=== PATIENT | male | born 1990 | race African-American/Black ===

== ENCOUNTER 2018-05-22 08:44 | Emergency (ER) | payer OTHER ==
[~2018-05-22] VITALS: Ht 193 cm; Wt 104.3 kg
[2018-05-22] MEDS ORDERED: IBUPROFEN 600 MG TABLET. PO ONE (09:15)
--- NOTE | 2018-05-22 09:21 | PHYS DOC ---
Past Medical History Past Medical History: Asthma Past Surgical History: No Surgical History Alcohol Use: None Drug Use: Marijuana Adult General Chief Complaint Chief Complaint: GROIN PAIN [facility] HPI 28-year-old male presents to ER for complaints of 2-3 day history of right testicular and groin pain. Patient denies any recent injury or falls. Pt denies urinary sxs, fever/chills, n/v, discharge, or concerns for STD. Pt denies rash/ lesions. He reports he does have increased pain w/walking denies swelling in extremities. Pt reports he did have sex 3-4 days ago denying pain w/intercourse or ejaculation. Review of Systems Review of Systems Constitutional: Denies fever or chills. Denies fatigue Respiratory: Denies cough or shortness of breath [] Cardiovascular: No additional information not addressed in HPI [] GI: Denies abdominal pain, nausea, vomiting, or diarrhea [] : Denies dysuria or hematuria. Denies penile discharge. Reports right testicular pain into right groin Musculoskeletal: Denies back pain Integument: Denies rash, swelling or skin lesions [] Neurologic: Denies headache, focal weakness or sensory changes [] All other systems were reviewed and found to be within normal limits, except as documented in this note. Current Medications Current Medications Current Medications Medications (Trade) Dose Ordered Sig/[facility] Start Time Stop Time Status Last Admin Dose Admin Ibuprofen (Motrin) 600 mg 1X ONCE 05/22/18 09:15 05/22/18 09:16 DC 05/22/18 09:21 600 MG Allergies Allergies Allergies Coded Allergies Type Severity Reaction Last Updated Verified No Known Drug Allergies 05/22/18 No Physical Exam Physical Exam Constitutional: Well developed, well nourished, no acute distress, non-toxic appearance. [] HENT: Normocephalic, atraumatic, oropharynx moist, nose normal. [] Eyes: Pupils equal, conjunctiva normal, no discharge. [] Neck: Normal range of motion, no tenderness, supple Cardiovascular:Heart rate regular rhythm, no murmur [] Lungs & Thorax: Bilateral breath sounds clear to auscultation. Serrations equal and nonlabored Abdomen: Bowel sounds normal, soft/no distention or rigidity, no tenderness, no masses, no pulsatile masses. [] Skin: Warm, dry, no erythema, no rash. [] Back: No tenderness, mild right-sided CVA tenderness area no left-sided CVA tenderness Extremities: No tenderness, no cyanosis, no clubbing, ROM intact, no edema. Dorsal pedis/pedal bilat. 2+. Patient had steady gait at bedside/unassisted Neurologic: Alert and oriented X 3, normal motor function, normal sensory function, no focal deficits noted. [] Psychologic: Affect normal, judgement normal, mood normal. [] RN at bedside during initial exam when exam was complete No lesions/rash- no penile discharge/pain. No scrotal/testicular swelling- tender on palp. rt testicle. Tender in rt groin with palp. lymph nodes- no crepitus. Femoral pulse 2+ equal bilat. Current Patient Data Vital Signs Vital Signs Date Time Temp Pulse Resp B/P (MAP) Pulse Ox O2 Delivery O2 Flow Rate FiO2 05/22/18 11:18 62 16 136/71 (92) 100 Room Air 05/22/18 09:05 98.2 98.2 Lab Values Laboratory Tests Test 05/22/18 09:29 Urine Collection Type Unknown Urine Color Yellow Urine Clarity Clear Urine pH 5.5 Urine Specific [place] >=1.030 Urine Protein Negative mg/dL (NEG-TRACE) Urine Glucose (UA) Negative mg/dL (NEG) Urine Ketones (Stick) Negative mg/dL (NEG) Urine Blood Negative (NEG) Urine Nitrite Negative (NEG) Urine Bilirubin Negative (NEG) Urine Urobilinogen Dipstick 0.2 mg/dL (0.2 mg/dL) Urine Leukocyte Esterase Small (NEG) Urine RBC 0 /HPF (0-2) Urine WBC >40 /HPF (0-4) Urine Squamous Epithelial Cells Occ /LPF Urine Bacteria 0 /HPF (0-FEW) Urine Mucus Mod /LPF EKG EKG [] Radiology/Procedures Radiology/Procedures PROCEDURE: TESTICULAR/SCROTUM CLINICAL HISTORY: RT TESTICULAR/GROIN PAIN
COMPARISON: None available. TECHNIQUE: Ultrasound images of the scrotum was performed with salazar-scale and color doppler. FINDINGS: The right testis measures 4 x 2.5 x 3.6 cm. The left testis measures 3.8 x 2.6 x 3.4 cm. There is no intratesticular abnormality. Testicular vascularity is symmetric and within normal limits. The epididymis is normal in appearance bilaterally. Small volume scrotal fluid is likely physiologic. There is no hydrocele or varicocele. IMPRESSION: 1. There is no evidence for testicular torsion. Electronically signed by: Yonis Lindsey MD (05/22/2018 10:55 AM) [facility] DICTATED and SIGNED BY: YONIS LINDSEY MD DATE: 05/22/18 1053 Course & Med Decision Making Course & Med Decision Making Pertinent Labs and Imaging studies reviewed. (See chart for details) 1105: Discussed test results with patient with ultrasound with no obvious acute findings. UA was negative for blood/nitrates sm. leuks- with micro showing >40 WBCs and occasional squamous/moderate mucus- no bacteria. Discussed plans for Rx for Bactrim and pt advised on pending GC/Chlam. Patient reports the ibuprofen has improved his symptoms. Patient this time is nontoxic in appearance and does continue to have some facial grimacing with repositioning. Patient reports he was able to urinate while in the ER without symptoms. Discussed plans for patient to follow up with primary care physician in next 2- 3 days for reevaluation if symptoms persist or with concerns. Will provide patient was small quantity of Bowers tablets for pain and he was advised on use of [id number] ibuprofen when necessary as directed on container. Education provided on signs and symptoms to return to ER for an discharge instructions were discussed. Dragon Disclaimer Dragon Disclaimer This electronic medical record was generated, in whole or in part, using a voice recognition dictation system. Departure Departure Impression: Primary Impression: Urinary tract infection Disposition: 01 HOME, SELF-CARE Condition: STABLE Referrals: NO PCP (PCP) Patient Instructions: Urinary Tract Infection Additional Instructions: As discussed tylenol and/or ibuprofen for pain control as directed on container. Drink plenty of water. Follow-up with primary doctor in next 2-3 days sooner with any concerns. Warm compress to right groin every 3-4 hours for 20-30 minutes at a time. Wear supportive underwear. Scripts Hydrocodone/Apap 5-325 (NORCO 5-325 TABLET) 1 Each Tablet 1 TAB PO PRN Q6HRS PRN for PAIN, #8 TAB 0 Refills Prov: MARIBEL UMANZOR RADIO/TV TECHNICIAN 05/22/18 Sulfamethoxazole/Trimethoprim (BACTRIM DS TABLET) 1 Each Tablet 1 TAB PO BID, #14 TAB 0 Refills Finish all medication Prov: MARIBEL UMANZOR APRN 05/22/18 MARIBEL UMANZOR APRN May 22, 2018 09:21
[2018-05-22 09:39] LABS: BILIRUBIN,URINE NEGATIVE (NEG); CLARITY,URINE CLEAR; COLOR,URINE YELLOW; NITRITE,URINE NEGATIVE (NEG); PH,URINE 5.5; PROTEIN,URINE NEGATIVE (NEG-TRACE); UROBILINOGEN,URINE 0.2 mg/dL (0.2 mg/dL)
[2018-05-22 09:50] LABS: RBC,URINE 0 /HPF (0-2); SQUAMOUS EPITHELIAL CELL,UR OCC /LPF; WBC,URINE >40 /HPF (0-4)
[2018-05-22 09:51] LABS: BACTERIA,URINE 0 /HPF (0-FEW)
--- NOTE | 2018-05-22 10:58 | RAD ---
CLINICAL HISTORY: RT TESTICULAR/GROIN PAIN
COMPARISON: None available. TECHNIQUE: Ultrasound images of the scrotum was performed with salazar-scale and color doppler. FINDINGS: The right testis measures 4 x 2.5 x 3.6 cm. The left testis measures 3.8 x 2.6 x 3.4 cm. There is no intratesticular abnormality. Testicular vascularity is symmetric and within normal limits. The epididymis is normal in appearance bilaterally. Small volume scrotal fluid is likely physiologic. There is no hydrocele or varicocele. IMPRESSION: 1. There is no evidence for testicular torsion. Electronically signed by: Yonis Lindsey MD (05/22/2018 10:55 AM) [facility]
[2018-05-22] MEDS ORDERED: HYDR-3164 PO (11:13)
[2018-05-22] MEDS ORDERED: SULF1TAB24 PO (11:13)
[2018-05-22 11:18] VITALS: BP 136/71
== END 2018-05-22 11:22 | disposition home or self-care (01) ==
LOC: ER 08:44
DX: N39.0 Urinary tract infection, site not specified (principal); J45.909 Unspecified asthma, uncomplicated
CPT/HCPCS: 76870; 81001; 87086; 87491; 87591; 99285-25